=== PATIENT | male | born 1970 | race Caucasian/White ===

== ENCOUNTER 2021-12-21 09:14 | Outpatient (CLI) | payer BC | END 2021-12-21 09:15 | disposition home or self-care (01) | LOC: CSHWCC 09:14 | PROVIDERS: ATTEND Nurse Practitioner Family | DX: S61.201D Unspecified open wound of left index finger without damage to nail, subsequent encounter (principal) | CPT/HCPCS: 87070; 87205 ==

== ENCOUNTER 2021-12-21 12:11 | Outpatient (CLI) | payer BC | END 2021-12-21 12:12 | disposition home or self-care (01) | LOC: CSHRAD 12:11 | PROVIDERS: ATTEND Nurse Practitioner Family | DX: S61.201A Unspecified open wound of left index finger without damage to nail, initial encounter (principal); L98.499 Non-pressure chronic ulcer of skin of other sites with unspecified severity ==

== ENCOUNTER 2021-12-25 14:59 | Outpatient (CLI) | payer BC | END 2021-12-25 15:00 | disposition home or self-care (01) | LOC: CSHWCC 14:59 | PROVIDERS: ATTEND Nurse Practitioner Family | DX: S61.201D Unspecified open wound of left index finger without damage to nail, subsequent encounter (principal) ==

== ENCOUNTER 2022-02-15 14:54 | Outpatient (CLI) | payer BC | END 2022-02-15 14:55 | disposition home or self-care (01) | LOC: CSHWCC 14:54 | PROVIDERS: ATTEND Nurse Practitioner Family | DX: S61.201D Unspecified open wound of left index finger without damage to nail, subsequent encounter (principal) | CPT/HCPCS: 99212; G0463 ==